=== PATIENT | male | born 1965 | race Caucasian/White ===

== ENCOUNTER → 2023-02-23 | Outpatient (REF) | LOC: M PLAIMG 10:46 | PROVIDERS: ATTEND Internal Medicine | DX: R06.02 Shortness of breath (principal) ==

== ENCOUNTER → 2023-12-08 | Outpatient (REF) | LOC: M PLAIMG 11:44 | PROVIDERS: ATTEND Internal Medicine | DX: R06.02 Shortness of breath (principal) ==